=== PATIENT | female | born 1990 | race Caucasian/White ===

== ENCOUNTER 2016-05-28 14:49 | Emergency (ER) | payer OTHER ==
[2016-05-28 17:18] VITALS: BP 129/95
[2016-05-28] MEDS ORDERED: Sulfamethox/Trimethoprim DS 800/160* TAB PO ONE (18:06)
[2016-05-28] MEDS ORDERED: Cephalexin CAP* 500 MG PO ONE (18:06)
--- NOTE | 2016-06-07 13:52 | UC ---
Carlos Martínez Erika, scribed for Kae Hi DO on 05/28/16 at 1756 . Skin Complaint HPI - HPI Summary HPI Summary: Patient is a 25-year-old female presenting to [facility] with a CC of possible abscess. Patient reports she noticed the abscess in her left axilla one week ago , and it has been worsening since. She reports it is painful at the site, and a burning pain radiates down the arm to the forearm. Pain is aggravated by moving the arm. Pain is temporarily alleviated by hot compresses which she has used 5x/ day for the past week. Patient states mild drainage from the area a few days ago. Associated symptoms include fatigue, chills for the past 2 days, and headache for the past 3 days. Patient also notes a left-sided ear ache for the past week. Patient denies abscesses in the past. Hx migraines, asthma, non- alcoholic cirrhosis. PSHx cholecystectomy, 2 C-sections, ear tubes. FHx CAD, HTN. Patient smokes, and works in retail. - History of Current Complaint Chief Complaint: UCWounds Time Seen by Provider: 05/28/16 17:29 Stated Complaint: WOUND IN ARMPIT Hx Obtained From: Patient Hx Last Menstrual Period: 05/10/16 Onset/Duration: Gradual Onset, Lasting Weeks - about 1 week, Still Present Timing: Constant Onset Severity: Mild Current Severity: Moderate Pain Intensity: 8 Pain Scale Used: 0-10 Numeric Location: Other - right axilla Character: Pain, Redness, Raised Aggravating: Touch Alleviating: Heat - temporarily Associated Signs & Symptoms: Positive: Chills - Allergy/Home Medications Allergies/Adverse Reactions: Allergies Allergy/AdvReac Type Severity Reaction Status Date / Time Acetaminophen [From Tylenol] Allergy See Comment Verified 05/30/16 09:45 Review of Systems Constitutional: Chills, Fatigue Skin: Other - possible abscess in the left axilla Eyes: Negative ENT: Ear Ache - left Respiratory: Negative Cardiovascular: Negative Gastrointestinal: Negative Genitourinary: Negative Motor: Negative Neurovascular: Negative Musculoskeletal: Negative Neurological: Headache Psychological: Negative All Other Systems Reviewed And Are Negative: Yes PMH/Surg Hx/FS Hx/Imm Hx - Additional Past Medical History Additional PMH: non-alcoholic cirrhosis Endocrine History Of: Denies: Diabetes, Thyroid Disease Cardiovascular History Of: Denies: Cardiac Disorders, Hypertension, Congestive Heart Failure Respiratory History Of: Reports: Asthma Denies: COPD GI/ History Of: Denies: Ulcer Neurological History Of: Reports: Migraine - Surgical History Surgical History: Yes Surgery Procedure, Year, and Place: gallbladder, 2 csection, ear tubes - Family History Known Family History: Positive: Cardiac Disease, Hypertension - Social History Occupation: Employed Full-time Lives: With Family Alcohol Use: Occasionally Substance Use Type: None Smoking Status (MU): Light Every Day Tobacco Smoker Type: Cigarettes Have You Smoked in the Last Year: Yes Household Exposure Type: Cigarettes Cessation Counseling: Patient Advised to Stop Physical Exam Triage Information Reviewed: Yes Appearance: Well-Appearing, No Pain Distress, Obese Vital Signs: Initial Vital Signs Temp 99.8 F 05/28/16 17:12 Pulse 108 05/28/16 17:12 Resp 20 05/28/16 17:12 BP 129/95 05/28/16 17:12 Pulse Ox 94 05/28/16 17:12 Vital Signs Reviewed: Yes Eyes: Positive: Conjunctiva Clear. Negative: Discharge ENT: Positive: Hearing grossly normal, TMs normal. Negative: Muffled/hoarse voice Neck: Positive: Supple, Nontender Respiratory: Positive: Lungs clear, Normal breath sounds, No respiratory distress, No accessory muscle use Cardiovascular: Positive: No Murmur, Tachycardia - at 108 bpm on triage, 98 bpm on exam Musculoskeletal Exam: Normal Neurological: Positive: Alert, Muscle Tone Normal Psychological Exam: Normal Psychological: Positive: Age Appropriate Behavior Skin Exam: Other - quarter sized area of erythema in left axilla. There is an indurated area underneath it approximately 4 cm x 2 cm, exquisitely tender. Positive for callor, negative for fluctuance, negative for drainage. Course/Dx - Diagnoses Provider Diagnoses: abscess Discharge - Discharge Plan Condition: Stable Disposition: HOME Prescriptions: Cephalexin CAP* [Keflex CAP*] 500 mg PO BID #19 cap HYDROcodone/ACETAMIN 5-325 MG* [[place] 5-325 TAB*] 1 tab PO Q8H PRN #8 tab MDD 3 TABS PRN Reason: Pain Sulfamethox/Trimethoprim DS* [Bactrim DS 800/160 TAB*] 1 tab PO BID #19 tab Patient Education Materials: Abscess (ED), Serous Otitis Media (ED) Forms: *Work Release Referrals: No Primary Care Phys,NOPCP [Primary Care Provider] - Additional Instructions: DISCUSSED, YOUR ABSCESS IS STILL VERY HARD. WE COULD TRY DRAINING IT TODAY BUT THE PROCEDURE MAY NOT BE VERY FRUITFUL. YOU HAVE CHOSEN TO TRY STARTING ANTIBIOTICS, CONTINUING WARM SOAKS AND FOLLOWING UP IN 2 DAYS FOR RE-EVALUATION. IF SYMPTOMS WORSEN OR NEW SYMPTOMS DEVELOP, YOU SHOULD RETURN HERE OF GO TO THE ED SOONER FOR RE-EVALUATION. CEPHALEXIN: The antibiotic you've been prescribed is a member of the cephalosporin class. This type of antibiotic covers a wide variety of infections, including those of the skin, lungs, and urinary tract. It's useful for staph infections. This antibiotic is slightly similar to the penicillin family. In rare cases , a person who is allergic to penicillin will also be allergic to this medication. If you have had a severe allergic reaction to penicillin, and have not taken this antibiotic since that time, notify your doctor. Antibiotics which cover many germs ("broad spectrum" antibiotics) are more likely to cause diarrhea or "yeast" infections. Women prone to vaginal yeast problems may suffer an attack after taking this antibiotic. In infants, oral thrush (white spots "stuck" on the cheek) or yeast diaper rash may result. See your doctor if these problems occur. Call at once if you develop itching, hives , shortness of breath, or lightheadedness. ANTIBIOTIC THERAPY:BACTRIM You have been given an antibiotic prescription. It's important that you take all the medication, unless instructed otherwise by your physician. Failure to complete the entire course can result in relapse of your condition. Common side effects of antibiotics include nausea, intestinal cramping, or diarrhea. Women may develop vaginal yeast infections, and babies can get yeast (thrush) in the mouth following the use of antibiotics. Contact your physician if you develop significant side effects from this medication. Allergy to this antibiotic can result in hives, wheezing, faintness, or itching. If symptoms of allergy occur, stop the medication and call the doctor. ANY TIME YOU TAKE AN ANTIBIOTIC, IT IS IMPORTANT TO REPLENISH THE BODY'S BALANCE OF "GOOD" BACTERIA BY EATING HIGH QUALITY CULTURED FOOD SUCH YOGURT, SAURKRAUT OR CARLA CHI AND/OR TAKING A PROBIOTIC SUPPLEMENT. The documentation as recorded by the Carlos christina Erika accurately reflects the service I personally performed and the decisions made by , Kae Hi DO.
== END 2016-05-28 18:36 | disposition home or self-care (01) ==
LOC: UCEAST 14:49
DX: L02.412 Cutaneous abscess of left axilla (principal); R53.83 Other fatigue; R68.83 Chills (without fever); J45.909 Unspecified asthma, uncomplicated; G43.909 Migraine, unspecified, not intractable, without status migrainosus; E66.9 Obesity, unspecified; Z90.49 Acquired absence of other specified parts of digestive tract; Z88.6 Allergy status to analgesic agent; F17.210 Nicotine dependence, cigarettes, uncomplicated
CPT/HCPCS: 99212; A9270-GY; G0463

== ENCOUNTER 2016-05-30 09:34 | Emergency (ER) | payer OTHER ==
[2016-05-30 09:50] VITALS: BP 134/72
[2016-05-30] MEDS ORDERED: Lidocaine/Epineph/Tetraca SOL* (LET solution) 4 ML BTL TOPICAL ONE (09:58)
--- NOTE | 2016-05-30 09:58 | UC ---
Skin Complaint HPI - HPI Summary HPI Summary: worsening abscess under left arm---seen 2 days ago and was began on Keflex and Bactrim - History of Current Complaint Chief Complaint: UCGeneralIllness Time Seen by Provider: 05/30/16 09:44 Stated Complaint: RECHECK ABCESS Hx Obtained From: Patient Hx Last Menstrual Period: April 2015 ?: No Onset/Duration: Sudden Onset, Lasting Days, Worse Since - past 24 hours Timing: Constant Onset Severity: Moderate Current Severity: Moderate Pain Intensity: 9 Pain Scale Used: 0-10 Numeric Location: Discrete - left axilla Character: Pain, Redness, Raised Aggravating: Touch Alleviating: Treatment SPORTS SPECIALIST: - hydrocodone, bactrim , keflex Associated Signs & Symptoms: Positive: Tenderness - left axilla - Allergy/Home Medications Allergies/Adverse Reactions: Allergies Allergy/AdvReac Type Severity Reaction Status Date / Time Acetaminophen [From Tylenol] Allergy See Comment Verified 05/30/16 09:45 Review of Systems Constitutional: Negative Skin: Negative, Other - abscess left axilla Eyes: Negative ENT: Negative Respiratory: Negative Cardiovascular: Negative Gastrointestinal: Negative Genitourinary: Negative Motor: Negative Neurovascular: Negative Musculoskeletal: Negative Neurological: Negative Psychological: Negative All Other Systems Reviewed And Are Negative: Yes PMH/Surg Hx/FS Hx/Imm Hx Previously Healthy: No Endocrine History Of: Denies: Diabetes, Thyroid Disease Cardiovascular History Of: Denies: Cardiac Disorders, Hypertension, Congestive Heart Failure Respiratory History Of: Reports: Asthma Denies: COPD GI/ History Of: Denies: Ulcer - Surgical History Surgical History: Yes Surgery Procedure, Year, and Place: gallbladder, 2 csection - Family History Known Family History: Positive: None Family History: no reported cardiovascular issues in family lineage - Social History Occupation: Employed Full-time Lives: With Family Alcohol Use: Occasionally Substance Use Type: None Smoking Status (MU): Light Every Day Tobacco Smoker Amount Used/How Often: 1/2 ppd Household Exposure Type: Cigarettes Cessation Counseling: Patient Advised to Stop - Immunization History Most Recent Influenza Vaccination: 2016 Most Recent Tetanus Shot: UTD Most Recent Pneumonia Vaccination: n/a Physical Exam Triage Information Reviewed: Yes Appearance: Well-Appearing, Pain Distress, Obese Vital Signs: Initial Vital Signs Temp 98.2 F 05/30/16 09:46 Pulse 90 05/30/16 09:46 Resp 18 05/30/16 09:46 BP 134/72 05/30/16 09:46 Pulse Ox 99 05/30/16 09:46 Vital Signs Reviewed: Yes Eye Exam: Normal Eyes: Positive: Conjunctiva Clear ENT Exam: Normal ENT: Positive: Normal ENT inspection, Hearing grossly normal. Negative: Nasal congestion, Nasal drainage, Trismus, Muffled/hoarse voice Dental Exam: Normal Neck exam: Normal Neck: Positive: Supple, Nontender, No Lymphadenopathy Respiratory Exam: Normal Respiratory: Positive: Chest non-tender, Lungs clear, Normal breath sounds, No respiratory distress, No accessory muscle use Cardiovascular Exam: Normal Cardiovascular: Positive: RRR, No Murmur, Pulses Normal, Brisk Capillary Refill Musculoskeletal Exam: Normal Musculoskeletal: Positive: Strength Intact, ROM Intact, No Edema Neurological Exam: Normal Neurological: Positive: Alert, Muscle Tone Normal Psychological Exam: Normal Psychological: Positive: Normal Response To Family Skin Exam: Normal, Other - abscess left axilla Skin: Positive: Other - 6x6 cm firm mass with central softening Re-Evaluation - Re-Evaluation First Eval Change: Improved - tolerated I&D well, 30-40 cc of purulent drainage from wound , 1/4 inch paching and bulky dressing applied Course/Dx - Course Course Of Treatment: continue keflex and Bactrim, pain med, sling heat, dressing change BID and prn, return in 2 days for packing removal and re-check, follow with pcp, nicotine cesation support - Differential Diagnoses - Skin Complaint Differential Diagnoses: Abscess, MRSA - Diagnoses Provider Diagnoses: I&D left axilla abscess, nicotine dependent Procedures - Incision and Drainage Site: left axilla Anesthesia: Topical - Let 4cc, Local - 4 cc of lidocaine 1% with out epi Instrument(s): Scalpel Packing: Gauze Discharge - Discharge Plan Condition: Stable Disposition: HOME Patient Education Materials: Abscess (ED), Heat Pack Application (ED) Forms: *Work Release Referrals: [facility] [Outside] - 5 Days Additional Instructions: return in 2 days for packing removal
[2016-05-30] MEDS ORDERED: HYDROcodone/ACETAMIN 5-325 MG* 1 TAB PO ONE (09:59)
[2016-05-30] MEDS ORDERED: Lidocaine 1% MDV 20 ML INJ ONE (09:59)
[2016-05-30] MEDS ORDERED: Lidocaine 1% MPF* 2 ML VIAL ONE (10:09)
== END 2016-05-30 11:26 | disposition home or self-care (01) ==
LOC: UCEAST 09:34
DX: L02.412 Cutaneous abscess of left axilla (principal); J45.909 Unspecified asthma, uncomplicated; F17.210 Nicotine dependence, cigarettes, uncomplicated; Z88.6 Allergy status to analgesic agent
CPT/HCPCS: 10060; 87070; 87077; 87186; 87205; 87640; 87641; 99212; G0463

== ENCOUNTER 2016-09-15 12:53 | Emergency (ER) | payer OTHER ==
[2016-09-15 12:57] VITALS: BP 117/82
[2016-09-15] MEDS ORDERED: Ibuprofen TAB* 600 MG PO ONE (14:20)
--- NOTE | 2016-09-15 15:11 | ED ---
Throat Pain/Nasal Congestion - HPI Summary HPI Summary: 26 female presents with complaints of redness, swelling and pain of right lower eye lid that has been ongoing for the past 2 days and worsening. Patient states she thought it was a stye however has been doing warm compresses without relief. States vision is blurred due to swelling however no vision loss. No symptoms of left eye. Denies pruritis adn fever/chills. Denies any discharge. States swelling has started to go into cheek area below eye. Denies anything like this before. No other symptoms or complaints. PMHx nonalcoholic cirrhosis of liver. - History of Current Complaint Chief Complaint: EDEyeProblem Time Seen by Provider: 09/15/16 13:14 Hx Obtained From: Patient Onset/Duration: Sudden Onset, Lasting Days Severity: Mild - Allergies/Home Medications Allergies/Adverse Reactions: Allergies Allergy/AdvReac Type Severity Reaction Status Date / Time Acetaminophen [From Tylenol] Allergy See Comment Verified 05/30/16 09:45 PMH/Surg Hx/FS Hx/Imm Hx Endocrine/Hematology History: Denies: Hx Diabetes, Hx Thyroid Disease Cardiovascular History: Denies: Hx Congestive Heart Failure, Hx Hypertension Respiratory History: Reports: Hx Asthma Denies: Hx Chronic Obstructive Pulmonary Disease (COPD) GI History: 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 , Other GI Disorders - abd pain x 2 mo Denies: Hx Ulcer - Surgical History Surgery Procedure, Year, and Place: gallbladder, 2 csection Infectious Disease History: No Infectious Disease History: Denies: Hx Hepatitis, Hx Human Immunodeficiency Virus (HIV), Traveled Outside the [place] in Last 30 Days - Family History Known Family History: Positive: None Family History: no reported cardiovascular issues in family lineage - Social History Alcohol Use: Occasionally Substance Use Type: Reports: None Smoking Status (MU): Light Every Day Tobacco Smoker Amount Used/How Often: 1/2 ppd Review of Systems Constitutional: Negative Positive: Blurred Vision, Drainage - minimal intermittently, Erythema, Other - swelling, pain ENT: Negative Cardiovascular: Negative Respiratory: Negative Gastrointestinal: Negative All Other Systems Reviewed And Are Negative: Yes Physical Exam Triage Information Reviewed: Yes Vital Signs On Initial Exam: Initial Vitals Temp Pulse Resp BP Pulse Ox 97.5 F 86 20 117/82 98 09/15/16 12:55 09/15/16 12:55 09/15/16 12:55 09/15/16 12:55 09/15/16 12:55 Vital Signs Reviewed: Yes Appearance: Positive: Well-Appearing, No Pain Distress, Well-Nourished Skin: Positive: Warm, Skin Color Reflects Adequate Perfusion, Dry, Erythema @ - periorbital area under right eyelid with some edema. warm to touch, rest of skin exam normal. Head/Face: Positive: Normal Head/Face Inspection - besides eye as noted below Eyes: Positive: EOMI, SANTIAGO, Conjunctiva Clear, Other: - appears to be an infected stye or tear duct that was clogged and became infected, red, swollen RIGHT lower inner lid also warm. no current drainage noted. yellow crusted appearance in areas of lower eye lid at swollen area. very firm to touch. stye not palpated or visualized due to diffuse swelling. normal fundoscopic exam from what could be visualized. visual acuity limited due to blurriness of right eye ENT: Positive: Normal ENT inspection, Hearing grossly normal, Pharynx normal, TMs normal Neck: Positive: Supple, Nontender Respiratory/Lung Sounds: Positive: Clear to Auscultation, Breath Sounds Present. Negative: Rales, Rhonchi, Wheezes Cardiovascular: Positive: Normal, RRR, Pulses are Symmetrical in both Upper and Lower Extremities. Negative: Murmur, Rub Bowel Sounds: Positive: Present Musculoskeletal: Positive: Normal, Strength/ROM Intact Neurological: Positive: Normal, Sensory/Motor Intact, Alert, Oriented to Person Place, Time Psychiatric: Positive: Affect/Mood Appropriate - [place] Coma Scale Coma Scale Total: 15 Diagnostics - Vital Signs Vital Signs Temp Pulse Resp BP Pulse Ox 09/15/16 13:33 97.5 F 86 20 117/82 98 09/15/16 12:55 97.5 F 86 20 117/82 98 - Laboratory Lab Statement: Any lab studies that have been ordered have been reviewed, and results considered in the medical decision making process. EENT Course/Dx - Course Course Of Treatment: given ibuprofen for pain and inflammation. Due to PE findings spoke with Dr Jackson to confirm both topical and oral antibiotic usage. Dr Jackson agreed with treatment plan. Given erythromycin topical and oral augmentin to use at home and follow up with optho. Aware of worsening signs and symptoms to follow up sooner for. Continue warm compresses and ibuprofen. - Differential Diagnoses Differential Diagnoses: Cellulitis, Dental Abscess, Periorbital/Orbital Cellulitis, Uveitis - Diagnoses Provider Diagnoses: Periorbital cellulitis of right eye, Plugged tear duct, Stye - Provider Notifications Discussed Care Of Patient With: Dr Jackson Time Discussed With Above Provider: 15:05 Discharge - Discharge Plan Condition: Stable Disposition: HOME Prescriptions: Amoxicillin/Clavulanate TAB* [Augmentin TAB 875*] 875 mg PO BID #14 tab Erythromycin TOPICAL GEL* [Erythromycin OPTH OINT*] 1 applic TOPICAL TID #1 oint Patient Education Materials: Stye (ED), Blocked Tear Duct (ED), Orbital Cellulitis (ED) Forms: *Work Release Referrals: [facility] [place] [facility] [Outside] No Primary Care Phys,NOPCP [Primary Care Provider] - Mehdi Bingham MD [Medical Doctor] - Additional Instructions: Take prescribed antibiotic as directed. Apply ointment three times daily. Continue warm compresses as often as possible. Massage area to help drain. Do not wear make up or touch eye. Ibuprofen for pain and inflammation. Follow up and make an appointment with Dr Bingham opthamology office in 3-5 days. Follow up with primary care provider. If symptoms worsen or do not improve please seek medical attention promptly.
== END 2016-09-15 15:22 | disposition home or self-care (01) ==
LOC: ED 12:53
DX: L03.213 Periorbital cellulitis (principal); H04.551 Acquired stenosis of right nasolacrimal duct; H00.012 Hordeolum externum right lower eyelid; F17.210 Nicotine dependence, cigarettes, uncomplicated; J45.909 Unspecified asthma, uncomplicated
CPT/HCPCS: 99282; A9270-GY

== ENCOUNTER 2016-09-27 06:42 | Emergency (ER) | payer MEDICAID, OTHER ==
[2016-09-27] MEDS ORDERED: diPHENhydraMINE IV* 50 MG/ML 1 ml VIAL (BENADRYL) IV ONE (07:16)
[2016-09-27] MEDS ORDERED: NS 0.9% 1000 ML* 1,000 ML IV ONE (07:16)
[2016-09-27] MEDS ORDERED: Metoclopramide IV* 5 MG/ML 2 ML VIAL IV ONE (07:16)
[2016-09-27] MEDS ORDERED: Ketorolac INJ* 30 MG/ML 1 ML VIAL IV PUSH ONE (07:17)
[2016-09-27 08:03] LABS: Hematocrit 41 % (35-47); Mean Corpuscular HGB Conc 34 g/dl (31-36); Mean Corpuscular Hemoglobin 30 pg (27-31); Mean Corpuscular Volume 89 fL (80-97); Mean Platelet Volume 9 um3 (7.4-10.4); Red Blood Count 4.63 10^6/ul (4.0-5.4); Red Cell Distribution Width 13 % (10.5-15); White Blood Count 6.4 10^3/ul (3.5-10.8)
[2016-09-27 08:14] LABS: Albumin 3.8 g/dL (3.2-5.2); BUN/Creatinine Ratio 16.1 (8-20); EGFR African American 147.4 (>60); EGFR Non-African American 114.6 (>60); Globulin 2.8 g/dL (2-4); Potassium 3.7 mmol/L (3.5-5.0); Total Bilirubin 0.5 mg/dL (0.2-1.0); Total Protein 6.6 g/dL (6.4-8.9)
[2016-09-27 08:32] LABS: Urine Bacteria 1+ (Absent); Urine Bilirubin Negative (Negative); Urine Glucose Negative (Negative); Urine Nitrite Negative (Negative)
[2016-09-27 10:09] VITALS: BP 112/91
[2016-09-27 10:12] LABS: Erythrocyte Sed Rate 9 mm/Hr (0-14)
--- NOTE | 2016-09-27 17:49 | ED ---
Yehuda Martínez Rebecca, scribed for Zaid Alaniz MD on 09/27/16 at 0718 . Headache - HPI Summary HPI Summary: Pt is a 26 y/o F who presents to ED c/o DESOUZA. Sx began yesterday at 2300 and is currently severe, ranked 10/10. DESOUZA is in the occipital, frontal and L-sided temporal regions of the head with radiation to the neck and characterized as a typical migraine. Sx aggravated and alleviated by nothing. Additionally c/o N/V and chills. Denies fever. PMHx migraines - current sx are similar to previous episodes of migraines. Usually, she gets migraines once every few weeks and treats them with Ibuprofen and a muscle relaxant of which she is unsure of the name. - History Of Current Complaint Chief Complaint: EDHeadache Stated Complaint: MIGRAINE/NAUSEA Time Seen by Provider: 09/27/16 07:07 Hx Obtained From: Patient Hx Last Menstrual Period: April 2015 Onset/Duration: Started hours ago - At 2300 last night, Still Present Currently Pain Is: Current Pain Scale(0-10)= - 10/10, Severe Character: Migraine Location of Headache: Frontal, Temporal - Left-sided, Occipital Radiates to: Neck Aggravating Factor: Nothing Allevating Factors: Nothing Associated Signs And Symptoms: Nausea, Vomiting, Other (Noted In Comments) - Chills Related History: Similar Episode/DX As: - Previous migraines - Allergies/Home Medications Allergies/Adverse Reactions: Allergies Allergy/AdvReac Type Severity Reaction Status Date / Time Acetaminophen [From Tylenol] Allergy See Comment Verified 09/27/16 06:47 PMH/Surg Hx/FS Hx/Imm Hx Endocrine/Hematology History: Denies: Hx Diabetes, Hx Thyroid Disease Cardiovascular History: Denies: Hx Congestive Heart Failure, Hx Hypertension Respiratory History: Reports: Hx Asthma Denies: Hx Chronic Obstructive Pulmonary Disease (COPD) GI History: 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 , Other GI Disorders - abd pain x 2 mo Denies: Hx Ulcer - Surgical History Surgery Procedure, Year, and Place: gallbladder, 2 csection Infectious Disease History: Yes Infectious Disease History: Denies: Hx Hepatitis, Hx Human Immunodeficiency Virus (HIV), Traveled Outside the [place] in Last 30 Days - Family History Known Family History: Negative: Cardiac Disease Family History: no reported cardiovascular issues in family lineage - Social History Alcohol Use: Occasionally Substance Use Type: Reports: None Smoking Status (MU): Light Every Day Tobacco Smoker Amount Used/How Often: 1/2 ppd Review of Systems Positive: Chills. Negative: Fever Positive: Vomiting, Nausea Positive: Headache - 10/10 typical migraine All Other Systems Reviewed And Are Negative: Yes Physical Exam - Summary Physical Exam Summary: VITAL SIGNS: Reviewed. GENERAL: ~Patient is an obese female who is lying comfortable in the stretcher. ~Patient is not in any acute respiratory distress. HEAD AND FACE: No signs of trauma. ~No ecchymosis, hematomas or skull depressions. No sinus tenderness. EYES: PERRLA, EOMI x 2, No injected conjunctiva, no nystagmus. EARS: Hearing grossly intact. Ear canals and tympanic membranes are within normal limits. MOUTH: Oropharynx within normal limits. NECK: Supple, trachea is midline, no adenopathy, no JVD, no carotid bruit, no c- spine tenderness, neck with full ROM. CHEST: Symmetric, no tenderness at palpation LUNGS: Clear to auscultation bilaterally. No wheezing or crackles. CVS: Regular rate and rhythm, S1 and S2 present, no murmurs or gallops appreciated. ABDOMEN: Soft, non-tender. No signs of distention. No rebound no guarding, and no masses palpated. Bowel sounds are normal. EXTREMITIES: FROM in all major joints, no edema, no cyanosis or clubbing. NEURO: Alert and oriented x 3. No acute neurological deficits. Speech is normal and follows commands. SKIN: Dry and warm Triage Information Reviewed: Yes Vital Signs On Initial Exam: Initial Vitals Temp Pulse Resp BP Pulse Ox 98.1 F 85 16 117/80 97 09/27/16 06:48 09/27/16 06:48 09/27/16 06:48 09/27/16 06:48 09/27/16 06:48 Vital Signs Reviewed: Yes - [place] Coma Scale Coma Scale Total: 15 Diagnostics - Vital Signs Vital Signs Temp Pulse Resp BP Pulse Ox 09/27/16 06:48 98.1 F 85 16 117/80 97 - Laboratory Lab Results: Lab Results 09/27/16 09/27/16 09/27/16 Range/Units 07:50 07:50 08:00 WBC 6.4 (3.5-10.8) 10^3/ul RBC 4.63 (4.0-5.4) 10^6/ul Hgb 14.0 (12.0-16.0) g/dl Hct 41 (35-47) % MCV 89 (80-97) fL MCH 30 (27-31) pg MCHC 34 (31-36) g/dl RDW 13 (10.5-15) % Plt Count 212 (150-450) 10^3/ul MPV 9 (7.4-10.4) um3 Neut % (Auto) 58.6 (38-83) % Lymph % (Auto) 31.7 (25-47) % [place] % (Auto) 7.1 (1-9) % Eos % (Auto) 2.0 (0-6) % Baso % (Auto) 0.6 (0-2) % Absolute Neuts (auto) 3.8 (1.5-7.7) 10^3/ul Absolute Lymphs (auto) 2.0 (1.0-4.8) 10^3/ul Absolute Monos (auto) 0.5 (0-0.8) 10^3/ul Absolute Eos (auto) 0.1 (0-0.6) 10^3/ul Absolute Basos (auto) 0 (0-0.2) 10^3/ul Absolute Nucleated RBC 0 10^3/ul Nucleated RBC % 0 ESR 9 (0-14) mm/Hr Carbon Monoxide Screen (<3.5) % Sodium 136 (133-145) mmol/L Potassium 3.7 (3.5-5.0) mmol/L Chloride 104 (101-111) mmol/L Carbon Dioxide 27 (22-32) mmol/L Anion Gap 5 (2-11) mmol/L BUN 10 (6-24) mg/dL Creatinine 0.62 (0.51-0.95) mg/dL Est GFR ( Amer) 147.4 (>60) Est GFR (Non-Af Amer) 114.6 (>60) BUN/Creatinine Ratio 16.1 (8-20) Glucose 101 H (70-100) mg/dL Calcium 9.0 (8.6-10.3) mg/dL Total Bilirubin 0.50 (0.2-1.0) mg/dL AST 18 (13-39) U/L ALT 36 (7-52) U/L Alkaline Phosphatase 83 (34-104) U/L Total Protein 6.6 (6.4-8.9) g/dL Albumin 3.8 (3.2-5.2) g/dL Globulin 2.8 (2-4) g/dL Albumin/Globulin Ratio 1.4 (1-3) Urine Color Red A Urine Appearance Cloudy Urine pH 7.0 (5-9) Ur Specific [place] 1.016 (1.010-1.030) Urine Protein 1+(30 mg/dl) H (Negative) Urine Ketones Negative (Negative) Urine Blood 3+ H (Negative) Urine Nitrate Negative (Negative) Urine Bilirubin Negative (Negative) Urine Urobilinogen Negative (Negative) Ur Leukocyte Esterase Negative (Negative) Urine WBC (Auto) 1+(6-10/hpf) H (Absent) Urine RBC (Auto) 3+(>10/hpf) H (Absent) Ur Squamous Epith Cells Present H (Absent) Urine Bacteria 1+ H (Absent) Urine Glucose Negative (Negative) 09/27/16 Range/Units 08:00 WBC (3.5-10.8) 10^3/ul RBC (4.0-5.4) 10^6/ul Hgb (12.0-16.0) g/dl Hct (35-47) % MCV (80-97) fL MCH (27-31) pg MCHC (31-36) g/dl RDW (10.5-15) % Plt Count (150-450) 10^3/ul MPV (7.4-10.4) um3 Neut % (Auto) (38-83) % Lymph % (Auto) (25-47) % [place] % (Auto) (1-9) % Eos % (Auto) (0-6) % Baso % (Auto) (0-2) % Absolute Neuts (auto) (1.5-7.7) 10^3/ul Absolute Lymphs (auto) (1.0-4.8) 10^3/ul Absolute Monos (auto) (0-0.8) 10^3/ul Absolute Eos (auto) (0-0.6) 10^3/ul Absolute Basos (auto) (0-0.2) 10^3/ul Absolute Nucleated RBC 10^3/ul Nucleated RBC % ESR (0-14) mm/Hr Carbon Monoxide Screen 5.2 H (<3.5) % Sodium (133-145) mmol/L Potassium (3.5-5.0) mmol/L Chloride (101-111) mmol/L Carbon Dioxide (22-32) mmol/L Anion Gap (2-11) mmol/L BUN (6-24) mg/dL Creatinine (0.51-0.95) mg/dL Est GFR ( Amer) (>60) Est GFR (Non-Af Amer) (>60) BUN/Creatinine Ratio (8-20) Glucose (70-100) mg/dL Calcium (8.6-10.3) mg/dL Total Bilirubin (0.2-1.0) mg/dL AST (13-39) U/L ALT (7-52) U/L Alkaline Phosphatase (34-104) U/L Total Protein (6.4-8.9) g/dL Albumin (3.2-5.2) g/dL Globulin (2-4) g/dL Albumin/Globulin Ratio (1-3) Urine Color Urine Appearance Urine pH (5-9) Ur Specific [place] (1.010-1.030) Urine Protein (Negative) Urine Ketones (Negative) Urine Blood (Negative) Urine Nitrate (Negative) Urine Bilirubin (Negative) Urine Urobilinogen (Negative) Ur Leukocyte Esterase (Negative) Urine WBC (Auto) (Absent) Urine RBC (Auto) (Absent) Ur Squamous Epith Cells (Absent) Urine Bacteria (Absent) Urine Glucose (Negative) Result Diagrams: 09/27/16 07:50 09/27/16 07:50 Lab Statement: Any lab studies that have been ordered have been reviewed, and results considered in the medical decision making process. Re-Evaluation - Re-Evaluation First Eval Re-Evaluation Time: 09:54 Change: Improved Comment: Pt's sx have improved and she is asymptomatic. Headache Course/Dx - Course Assessment/Plan: Pt is a 26 y/o F who presents to ED c/o DESOUZA. Sx began yesterday at 2300 and is currently severe, ranked 10/10. DESOUZA is in the occipital, frontal and L-sided temporal regions of the head with radiation to the neck and characterized as a typical migraine. Sx aggravated and alleviated by nothing. Additionally c/o N/V and chills. Denies fever. PMHx migraines - current sx are similar to previous episodes of migraines. Usually, she gets migraines once every few weeks and treats them with Ibuprofen and a muscle relaxant of which she is unsure of the name. Test results without any significant abnormality except for carbon monoxide of 5.2 and glucose of 101. UA is contaminated, therefore it was sent for urine cultures. In the ED course, the pt was given IV fluids, Toradol, Reglan and Benadryl for the DESOUZA and the sx have resolved. At this time, the pt is asymptomatic. She is A&Ox3 therefore the pt will be D/C to home with a follow-up with PCP. Pt is hemodynamically stable and A&Ox3. I discussed all the findings and test results with the patient. Patient was instructed to return to the emergency room immediately if any of the symptoms return or worsens. Patient understands and agrees. Plan of care was discussed with the patient and patient understands and agrees with the plan of care. All questions were answered at patient satisfaction. There were no further complaints or concerns. Patient is alert and oriented x 3. Patient vital signs are stable. Patient is to follow up with primary care physician in the next 2 to 3 days. Patient understands and agrees. - Diagnoses Differential Diagnosis/HQI/PQRI: Migraine, Sinus Headache, Tension Headache Provider Diagnoses: Migraine headache Discharge - Discharge Plan Condition: Stable Disposition: HOME Patient Education Materials: Migraine Headache (ED) Referrals: [facility] PHYSICIAN REFERRAL [Outside] - 3 Days The documentation as recorded by the Yehuda christina Rebecca accurately reflects the service I personally performed and the decisions made by me, Zaid Alaniz MD.
--- NOTE | 2016-09-30 09:06 | PN ---
Progress Note - Progress Note Date of Service: 09/30/16 Note: Patient urine culture grew E coli 10-25,000 and normal suyapa so likely contaminate. no symptoms so no further action needed.
== END 2016-09-27 10:09 | disposition home or self-care (01) ==
LOC: ED 06:42
DX: G43.909 Migraine, unspecified, not intractable, without status migrainosus (principal); R11.2 Nausea with vomiting, unspecified; F17.210 Nicotine dependence, cigarettes, uncomplicated
CPT/HCPCS: 36415; 80053; 81003; 81015; 82375; 85025; 85652; 87077; 87086; 87186; 96374; 96375; 99282; J1200; J1885; J2765

== ENCOUNTER 2016-10-08 10:37 | Emergency (ER) | payer MEDICAID ==
[2016-10-08 12:50] VITALS: BP 110/79
--- NOTE | 2016-10-08 13:22 | UC ---
Skin Complaint HPI - HPI Summary HPI Summary: RED TENDER SMALL NODULE UNDER RIGHT ARMPIT. HISTORY OF AXILLARY ABSCESSES AND MRSA. NO FEVER. NO CHANGE IN ROM. - History of Current Complaint Chief Complaint: UCSkin Time Seen by Provider: 10/08/16 12:00 Stated Complaint: ABCESS ARM Hx Obtained From: Patient, Family/Diagram Clerk Hx Last Menstrual Period: 09/29/16 Onset/Duration: Gradual Onset, Lasting Days Skin Exposure Onset/Duration: Days Ago Onset Severity: Mild Current Severity: Mild Pain Intensity: 0 Pain Scale Used: 0-10 Numeric Location: Discrete - RIGHT AXILLA Character: Redness, Raised, Painful Aggravating: Touch Alleviating: Nothing Associated Signs & Symptoms: Positive: Rash - RIGHT AXILLA, Tenderness. Negative: Thirst, Fever, Chills, Cough, Syncope, Drainage, Bruising, Red Streaks , Joint Swelling - Allergy/Home Medications Allergies/Adverse Reactions: Allergies Allergy/AdvReac Type Severity Reaction Status Date / Time Acetaminophen [From Tylenol] Allergy See Comment Verified 10/08/16 10:47 Home Medications: Home Medications Albuterol HFA INHALER* [Ventolin HFA Inhaler*] 1 - 2 puff INH Q6H PRN 10/08/16 [ History Confirmed 10/08/16] Review of Systems Constitutional: Negative Skin: Other - SMALL ABSCESS RIGHT AXILLA Eyes: Negative ENT: Negative Respiratory: Negative Cardiovascular: Negative Gastrointestinal: Negative Genitourinary: Negative Motor: Negative Neurovascular: Negative Musculoskeletal: Negative Neurological: Negative Psychological: Negative All Other Systems Reviewed And Are Negative: Yes PMH/Surg Hx/FS Hx/Imm Hx Previously Healthy: Yes - Surgical History Surgical History: Yes Surgery Procedure, Year, and Place: gallbladder, 2 csection - Family History Known Family History: Positive: None Negative: Cardiac Disease Family History: no reported cardiovascular issues in family lineage - Social History Alcohol Use: Occasionally Substance Use Type: None Smoking Status (MU): Light Every Day Tobacco Smoker Amount Used/How Often: 1/2 ppd Household Exposure Type: Cigarettes - Immunization History Most Recent Influenza Vaccination: 2016 Most Recent Tetanus Shot: UTD Most Recent Pneumonia Vaccination: n/a Physical Exam Triage Information Reviewed: Yes Appearance: Well-Appearing, No Pain Distress, Well-Nourished Vital Signs: Initial Vital Signs Temp 98 F 10/08/16 10:48 Pulse 86 10/08/16 10:48 Resp 18 10/08/16 10:48 BP 119/81 10/08/16 10:48 Pulse Ox 99 10/08/16 10:48 Vital Signs Reviewed: Yes Eye Exam: Normal ENT Exam: Normal ENT: Positive: Normal ENT inspection Dental Exam: Normal Neck exam: Normal Neck: Positive: Supple, Nontender, No Lymphadenopathy Respiratory Exam: Normal Respiratory: Positive: Chest non-tender, Lungs clear, Normal breath sounds, No respiratory distress, No accessory muscle use Cardiovascular Exam: Normal Cardiovascular: Positive: RRR, No Murmur, Pulses Normal Abdominal Exam: Normal Musculoskeletal Exam: Normal Musculoskeletal: Positive: Strength Intact Neurological Exam: Normal Psychological Exam: Normal Skin: Positive: Other - SMALL 0.5 CM X 0.5 CM INDURATED ABSCESS RIGHT AXILLA Course/Dx - Differential Diagnoses - Skin Complaint Differential Diagnoses: Abscess, Cellulitis, MRSA - Diagnoses Provider Diagnoses: RIGHT INDURATED ABSCESS RIGHT AXILLA Discharge - Discharge Plan Condition: Stable Disposition: HOME Prescriptions: Sulfamethox/Trimethoprim DS* [Bactrim DS 800/160 TAB*] 1 tab PO BID #20 tab Patient Education Materials: MRSA (Methicillin-Resistant Staphylococcus Aureus ) (ED), Abscess (ED) Forms: *Work Release Referrals: [facility] PHYSICIAN REFERRAL [Outside] No Primary Care Phys,NOPCP [Primary Care Provider] - Additional Instructions: PRIMARY CARE: There are four major types of clinical preventive care: immunizations, screening , behavioral counseling (sometimes referred to as lifestyle changes), and chemoprevention. All four apply throughout the life span. It is important to establish and to have access to a Primary Care Physician, not only for follow- up regrding acute and chronic problems, but also for preventative care.
== END 2016-10-08 12:42 | disposition home or self-care (01) ==
LOC: UCEAST 10:37
DX: L02.411 Cutaneous abscess of right axilla (principal); Z86.14 Personal history of Methicillin resistant Staphylococcus aureus infection; Z90.49 Acquired absence of other specified parts of digestive tract; Z88.6 Allergy status to analgesic agent; F17.210 Nicotine dependence, cigarettes, uncomplicated
CPT/HCPCS: 99212; G0463

== ENCOUNTER 2017-06-04 19:50 | Emergency (ER) | payer MEDICAID, OTHER ==
[2017-06-04 20:49] VITALS: BP 130/82
--- NOTE | 2017-06-04 21:10 | UC ---
Throat Pain/Nasal Lj HPI - HPI Summary HPI Summary: patient has had sores on her tongue for 2 days and today has a very sore throat - History of Current Complaint Chief Complaint: UCGeneralIllness Stated Complaint: MOUTH SORES Time Seen by Provider: 06/04/17 20:50 Hx Obtained From: Patient Hx Last Menstrual Period: [id number] ?: No Onset/Duration: Gradual Onset Pain Intensity: 9 Associated Signs & Symptoms: Negative: Sinus Discomfort, Nasal Discharge, Fever - Allergies/Home Medications Allergies/Adverse Reactions: Allergies Allergy/AdvReac Type Severity Reaction Status Date / Time acetaminophen [From Tylenol] Allergy See Comment Verified 06/04/17 20:51 amoxicillin Allergy Hives/Diff. Verified 06/04/17 20:51 Breathing/I tching PMH/Surg Hx/FS Hx/Imm Hx Previously Healthy: Yes Respiratory History: Asthma - Surgical History Surgical History: Yes Surgery Procedure, Year, and Place: gallbladder, 2 - Family History Known Family History: Positive: None Negative: Cardiac Disease Family History: no reported cardiovascular issues in family lineage - Social History Occupation: Unemployed Lives: With Family Alcohol Use: Occasionally Alcohol Amount: 2/month Substance Use Type: None Smoking Status (MU): Light Every Day Tobacco Smoker Amount Used/How Often: 1/2 ppd Household Exposure Type: Cigarettes Cessation Counseling: Patient Advised to Stop - Immunization History Most Recent Influenza Vaccination: 2016 Most Recent Tetanus Shot: UTD Most Recent Pneumonia Vaccination: n/a Review of Systems Constitutional: Negative Skin: Negative ENT: Sore Throat, Other - painful sores on tongue Respiratory: Negative Cardiovascular: Negative Musculoskeletal: Negative Neurological: Negative Psychological: Negative Is Patient Immunocompromised?: No All Other Systems Reviewed And Are Negative: Yes Physical Exam Triage Information Reviewed: Yes Appearance: Well-Appearing, No Pain Distress, Obese Vital Signs: Initial Vital Signs Temp 99.8 F 06/04/17 20:44 Pulse 115 06/04/17 20:44 Resp 16 06/04/17 20:44 BP 130/82 06/04/17 20:44 Pulse Ox 99 06/04/17 20:44 Vital Signs Reviewed: Yes Eye Exam: Normal Eyes: Positive: Conjunctiva Clear ENT: Positive: Pharyngeal erythema, TMs normal. Negative: Nasal congestion, Sinus tenderness Dental Exam: Normal Neck: Positive: No Lymphadenopathy Respiratory Exam: Normal Respiratory: Positive: Lungs clear Cardiovascular Exam: Normal Cardiovascular: Positive: RRR Neurological Exam: Normal Psychological Exam: Normal Skin Exam: Normal Skin: Negative: rashes Throat Pain/Nasal Course/Dx - Differential Dx/Diagnosis Differential Diagnosis/HQI/PQRI: Sinusitis, Tonsillitis, URI Provider Diagnoses: apthous ulcers Discharge - Sign-Out/Discharge Documenting (check all that apply): Discharge - Discharge Plan Condition: Good Disposition: HOME Patient Education Materials: Pharyngitis (ED) Referrals: Dasia Payne MD [Primary Care Provider] - 2 Days (for recheck) Additional Instructions: use 1:1 mixture of liquid benadryl and liquid maalox: swish in mouth and spit 3- 4 times a day ibuprofen for sore throat as directed - Billing Disposition and Condition Condition: GOOD Disposition: HOME
== END 2017-06-04 21:24 | disposition home or self-care (01) ==
LOC: UCEAST 19:50
DX: K12.0 Recurrent oral aphthae (principal); J45.909 Unspecified asthma, uncomplicated; Z88.6 Allergy status to analgesic agent; Z88.0 Allergy status to penicillin; F17.210 Nicotine dependence, cigarettes, uncomplicated
CPT/HCPCS: 87651; 99211; G0463

== ENCOUNTER 2017-06-06 04:09 | Emergency (ER) | payer MEDICAID, OTHER ==
[2017-06-06] MEDS ORDERED: NS 0.9% 1000 ML* 1,000 ML IV ONE (04:47)
[2017-06-06] MEDS ORDERED: Acetaminophen TAB* 325 MG PO ONE (04:48)
[2017-06-06] MEDS ORDERED: Ketorolac INJ* 30 MG/ML 1 ML VIAL IV PUSH ONE (04:48)
[2017-06-06] MEDS ORDERED: Lidocaine 2% VISCOUS* 15 ML UDC SWISH SPIT ONE (04:48)
[2017-06-06] MEDS ORDERED: Ibuprofen TAB* 800 MG PO ONE (05:03)
[2017-06-06 05:20] LABS: ABS Basophils 0.1 10^3/ul (0-0.2); ABS Eosinophils 0.1 10^3/ul (0-0.6); ABS Lymphocytes 1.7 10^3/ul (1.0-4.8); ABS Monocytes 1.1 10^3/ul (0-0.8); ABS Neutrophils 6.7 10^3/ul (1.5-7.7); ABS Nucleated RBC 0 10^3/ul; Eosinophil % 0.6 % (0-6); Hematocrit 41 % (35-47); Hemoglobin 14.1 g/dl (12.0-16.0); Lymphocyte % 17.4 % (25-47); Mean Corpuscular HGB Conc 34 g/dl (31-36); Mean Corpuscular Hemoglobin 30 pg (27-31); Mean Corpuscular Volume 88 fL (80-97); Nucleated Red Blood Cells % 0; Platelet Count 164 10^3/ul (150-450); Red Blood Count 4.69 10^6/ul (4.0-5.4); Red Cell Distribution Width 13 % (10.5-15); White Blood Count 9.6 10^3/ul (3.5-10.8)
[2017-06-06 05:39] LABS: EGFR Non-African American 101.3 (>60)
--- NOTE | 2017-06-06 06:08 | ED ---
Mariel Martínez Gabriel, scribed for Elfar, Abdul, MD on 06/06/17 at 0441 . Influenza-Like Illness - HPI Summary HPI Summary: This patient is a 26 year old F BIBA to [facility] with a chief complaint of flu like symptoms since 06-01-17. The patient rates the pain 10/10 in severity. Patient reports fever, chills, sore throat, ear pain, mouth ulcers, and neck pain. Patient denies rash. Pt was seen at . - History of Current Complaint Hx Obtained From: Patient Onset/Duration: Lasting Days - 5, Still Present Severity: Moderate Associated Signs & Symptoms: Fever, Sore Throat - Allergy/Home Medications Allergies/Adverse Reactions: Allergies Allergy/AdvReac Type Severity Reaction Status Date / Time acetaminophen [From Tylenol] Allergy See Comment Verified 06/04/17 20:51 amoxicillin Allergy Hives/Diff. 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 , Other GI Disorders - abd pain x 2 mo Denies: Hx Ulcer - Surgical History Surgery Procedure, Year, and Place: gallbladder, 2 Infectious Disease History: No Infectious Disease History: Denies: Hx Clostridium Difficile, Hx Hepatitis, Hx Human Immunodeficiency Virus (HIV), Hx Shingles, Hx Tuberculosis, Hx Known/Suspected VRE, Hx Known/ Suspected VRSA, History Other Infectious Disease, Traveled Outside the [place] in Last 30 Days - Family History Known Family History: Negative: Cardiac Disease Family History: no reported cardiovascular issues in family lineage - Social History Alcohol Use: Occasionally Alcohol Amount: 2/month Substance Use Type: Reports: None Smoking Status (MU): Light Every Day Tobacco Smoker Amount Used/How Often: 1/2 ppd Review of Systems Positive: Fever, Chills ENT: Other - mouth sores Positive: Sore Throat, Other - ear pain Positive: Other - neck pain Negative: Rash All Other Systems Reviewed And Are Negative: Yes Physical Exam - Summary Physical Exam Summary: VITAL SIGNS: Reviewed. GENERAL: Patient is a well-developed and nourished female who is lying comfortable in the stretcher. Patient is not in any acute respiratory distress. HEAD AND FACE: No signs of trauma. No ecchymosis, hematomas or skull depressions. No sinus tenderness. EYES: PERRLA, EOMI x 2, No injected conjunctiva, no nystagmus. EARS: Hearing grossly intact. Ear canals and tympanic membranes are within normal limits. Vesicular rash on tongue. MOUTH: Oropharynx within normal limits. NECK: Supple, trachea is midline, no adenopathy, no JVD, no carotid bruit, no c- spine tenderness, neck with full ROM. CHEST: Symmetric, no tenderness at palpation LUNGS: Clear to auscultation bilaterally. No wheezing or crackles. CVS: Regular rate and rhythm, S1 and S2 present, no murmurs or gallops appreciated. ABDOMEN: Soft, non-tender. No signs of distention. No rebound no guarding, and no masses palpated. Bowel sounds are normal. EXTREMITIES: FROM in all major joints, no edema, no cyanosis or clubbing. NEURO rash on the palms of her hands Triage Information Reviewed: Yes Vital Signs On Initial Exam: Initial Vitals Temp Pulse Resp BP Pulse Ox 100.1 F 98 17 127/67 97 06/06/17 04:16 06/06/17 04:16 06/06/17 04:16 06/06/17 04:16 06/06/17 04:16 Vital Signs Reviewed: Yes Diagnostics - Vital Signs Vital Signs Temp Pulse Resp BP Pulse Ox 06/06/17 04:16 100.1 F 98 17 127/67 97 - Laboratory Result Diagrams: 06/06/17 04:57 06/06/17 04:57 Lab Statement: Any lab studies that have been ordered have been reviewed, and results considered in the medical decision making process. Flu Symptom Course/Dx - Course Assessment/Plan: This patient is a 26 year old F BIBA to [facility] with a chief complaint of flu like symptoms since 06-01-17. The patient rates the pain 10/10 in severity. Patient reports fever, chills, sore throat, ear pain, mouth ulcers , and neck pain. Patient denies rash. Pt was seen at . Test results with no significant abnormalities except for a CRP of 67. In the ED course the patient was given tylenol, toradol, motrin, lidocaine, and IV fluids. Dx coxsackie virus. Patient will be discharged with prescription for motrin and lidocaine and follow up from PCP. The patient is agreeable with this plan. - Diagnoses Provider Diagnoses: Coxsackie virus infection Discharge - Sign-Out/Discharge Documenting (check all that apply): Discharge - Discharge Plan Condition: Stable Disposition: HOME Prescriptions: Ibuprofen TAB* [Motrin TAB* 800 MG] 800 mg PO Q6H PRN #30 tab PRN Reason: Fever/Pain Lidocaine 2% VISCOUS* 10 ml PO TID PRN #1 btl PRN Reason: Pain Referrals: Dasia Payne MD [Primary Care Provider] - The documentation as recorded by the Mariel christina Gabriel accurately reflects the service I personally performed and the decisions made by , Giselle Murillo MD.
[2017-06-06 06:31] VITALS: BP 100/57
== END 2017-06-06 06:34 | disposition home or self-care (01) ==
LOC: ED 04:09
DX: B33.8 Other specified viral diseases (principal); R50.9 Fever, unspecified; J02.9 Acute pharyngitis, unspecified; H92.09 Otalgia, unspecified ear; F17.210 Nicotine dependence, cigarettes, uncomplicated
CPT/HCPCS: 36415; 80053; 85025; 86140; 86308; 87502; 87651; 96361; 96374; 99283; A9270-GY; J1885

== ENCOUNTER 2017-08-15 23:16 | Emergency (ER) | payer OTHER ==
[2017-08-15 23:56] LABS: ABS Basophils 0.1 10^3/ul (0-0.2); ABS Eosinophils 0.1 10^3/ul (0-0.6); ABS Lymphocytes 3.3 10^3/ul (1.0-4.8); ABS Monocytes 0.5 10^3/ul (0-0.8); ABS Neutrophils 4.6 10^3/ul (1.5-7.7); ABS Nucleated RBC 0 10^3/ul; Eosinophil % 1.7 % (0-6); Hematocrit 41 % (35-47); Lymphocyte % 38.3 % (25-47); Mean Corpuscular HGB Conc 34 g/dl (31-36); Mean Corpuscular Hemoglobin 30 pg (27-31); Mean Corpuscular Volume 89 fL (80-97); Mean Platelet Volume 8.4 um3 (7.4-10.4); Nucleated Red Blood Cells % 0.1; Platelet Count 238 10^3/ul (150-450); Red Blood Count 4.61 10^6/ul (4.00-5.40); Red Cell Distribution Width 13 % (10.5-15); White Blood Count 8.7 10^3/ul (3.5-10.8)
[2017-08-15] MEDS ORDERED: Metoclopramide IV* 5 MG/ML 2 ML VIAL IV ONE (23:58)
[2017-08-15] MEDS ORDERED: diPHENhydraMINE IV* 50 MG/ML 1 ml VIAL (BENADRYL) IV ONE (23:58)
[2017-08-15] MEDS ORDERED: NS 0.9% 1000 ML* 1,000 ML IV ONE (23:58)
--- NOTE | 2017-08-16 00:13 | ED ---
Headache - HPI Summary HPI Summary: Complains of sharp pain to the left side back of her head worse with movement, bifrontal headache, blurred vision, vomiting 3 starting at 9:30 tonight. Some blood in the third emesis. Also complains of productive cough 2 weeks. History of migraines. Patient states symptoms are same except for pain at the back of the head. Denies fever, sore throat, SOB, CP, abdominal pain, diarrhea , change in urine, change in BM, vaginal symptoms. Took ibuprofen 1g at 9:45 pm. Medical history is none alcoholic cirrhosis. Positive smoker, occasional drinker, and denies recreational drugs - History Of Current Complaint Chief Complaint: EDHeadache Stated Complaint: HEADACHE/BLURRY VISION Time Seen by Provider: 08/15/17 23:28 Hx Obtained From: Patient Hx Last Menstrual Period: [id number] Onset/Duration: Sudden Onset, Started hours ago Currently Pain Is: Severe Timing: Constant Character: Sharp, Typical Headache, Migraine Location of Headache: Frontal, Occipital Aggravating Factor: Other Allevating Factors: Nothing Associated Signs And Symptoms: Vomiting, Neck Pain, Visual Changes - Risk Factors SAH Risk Factors: Smoking Meningitis Risk Factors: Negative SDH Risk Factors: Negative Temporal Arteritis Risk Factors: Female - Allergies/Home Medications Allergies/Adverse Reactions: Allergies Allergy/AdvReac Type Severity Reaction Status Date / Time acetaminophen [From Tylenol] Allergy See Comment Verified 06/04/17 20:51 amoxicillin Allergy Hives/Diff. 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 , Other GI Disorders - abd pain x 2 mo Denies: Hx Ulcer History: Denies: Hx Dialysis EENT History: Denies: Hx Deafness Neurological History: Denies: Hx CVA - Surgical History Surgery Procedure, Year, and Place: gallbladder, 2 Infectious Disease History: Yes Infectious Disease History: Denies: Hx Clostridium Difficile, Hx Hepatitis, Hx Human Immunodeficiency Virus (HIV), Hx Shingles, Hx Tuberculosis, Hx Known/Suspected VRE, Hx Known/ Suspected VRSA, History Other Infectious Disease, Traveled Outside the [place] in Last 30 Days - Family History Known Family History: Positive: None Negative: Cardiac Disease Family History: no reported cardiovascular issues in family lineage - Social History Alcohol Use: Occasionally Alcohol Amount: 2/month Substance Use Type: Reports: None Smoking Status (MU): Light Every Day Tobacco Smoker Amount Used/How Often: 1/2 ppd Review of Systems Constitutional: Negative Positive: Blurred Vision ENT: Negative Cardiovascular: Negative Positive: Cough Positive: Vomiting, Nausea Genitourinary: Negative Musculoskeletal: Negative Skin: Negative Positive: Headache Psychological: Normal All Other Systems Reviewed And Are Negative: Yes Physical Exam - Summary Physical Exam Summary: Paraspinal muscles left of C-spine tender to palpation, left trapezius tender to palpation. Pain at back of head is left side only, worse with rotation of neck. Neuro exam normal. Negative Kernig's. Negative Brudzinski. Full range of motion of neck. Triage Information Reviewed: Yes Vital Signs On Initial Exam: Initial Vitals Temp Pulse Resp BP Pulse Ox 96.8 F 96 20 123/81 98 08/15/17 23:18 08/15/17 23:18 08/15/17 23:18 08/15/17 23:18 08/15/17 23:18 Vital Signs Reviewed: Yes Appearance: Positive: Well-Appearing Skin: Positive: Warm Head/Face: Positive: Normal Head/Face Inspection Eyes: Positive: Normal Neck: Positive: Supple Respiratory/Lung Sounds: Positive: Clear to Auscultation Cardiovascular: Positive: Normal Abdomen Description: Positive: Nontender Musculoskeletal: Positive: Normal Neurological: Positive: Normal Psychiatric: Positive: Normal AVPU Assessment: Alert - [place] Coma Scale Best Eye Response: 4 - Spontaneous Best Motor Response: 6 - Obeys Commands Best Verbal Response: 5 - Oriented Coma Scale Total: 15 Diagnostics - Vital Signs Vital Signs Temp Pulse Resp BP Pulse Ox 08/15/17 23:18 96.8 F 96 20 123/81 98 - Laboratory Lab Results: Lab Results 08/15/17 Range/Units 23:49 WBC 8.7 (3.5-10.8) 10^3/ul RBC 4.61 (4.00-5.40) 10^6/ul Hgb 14.0 (12.0-16.0) g/dl Hct 41 (35-47) % MCV 89 (80-97) fL MCH 30 (27-31) pg MCHC 34 (31-36) g/dl RDW 13 (10.5-15) % Plt Count 238 (150-450) 10^3/ul MPV 8.4 (7.4-10.4) um3 Neut % (Auto) 53.3 (38-83) % Lymph % (Auto) 38.3 (25-47) % [place] % (Auto) 5.8 (0-7) % Eos % (Auto) 1.7 (0-6) % Baso % (Auto) 0.9 (0-2) % Absolute Neuts (auto) 4.6 (1.5-7.7) 10^3/ul Absolute Lymphs (auto) 3.3 (1.0-4.8) 10^3/ul Absolute Monos (auto) 0.5 (0-0.8) 10^3/ul Absolute Eos (auto) 0.1 (0-0.6) 10^3/ul Absolute Basos (auto) 0.1 (0-0.2) 10^3/ul Absolute Nucleated RBC 0 10^3/ul Nucleated RBC % 0.1 Result Diagrams: 08/15/17 23:49 08/15/17 23:49 Lab Statement: Any lab studies that have been ordered have been reviewed, and results considered in the medical decision making process. - Radiology cxr Xray Interpretation: No Acute Changes Radiology Interpretation Completed By: ED Physician Headache Course/Dx - Course Course Of Treatment: Complains of sharp pain to the left side back of her head worse with movement, bifrontal headache, blurred vision, vomiting 3 starting at 9:30 tonight. Some blood in the third emesis. Also complains of productive cough 2 weeks. History of migraines. Patient states symptoms are same except for pain at the back of the head. Denies fever, sore throat, SOB, CP, abdominal pain, diarrhea, change in urine, change in BM, vaginal symptoms. Took ibuprofen 1g at 9:45 pm. Medical history is none alcoholic cirrhosis. Positive smoker, occasional drinker, and denies recreational drugs. Headache pain improved with Benadryl and Reglan. Migraine symptoms same as prior migraine symptoms Labs and imaging unremarkable. Rx for Valium for muscle spasm of left neck. - Diagnoses Provider Diagnoses: Migraine, Neck muscle spasm Discharge - Sign-Out/Discharge Documenting (check all that apply): Discharge/Admit/Transfer - Discharge Plan Condition: Stable Disposition: HOME Prescriptions: Diazepam TAB(*) [Valium TAB(*)] 5 mg PO TID PRN #5 tab MDD 3 tabs PRN Reason: Pain Patient Education Materials: Migraine Headache (ED), Muscle Spasm (ED) Referrals: Dasia Payne MD [Primary Care Provider] - Additional Instructions: Follow-up with primary care. Return to the ED for any new or worsening symptoms - Billing Disposition and Condition Condition: STABLE Disposition: Home
[2017-08-16 02:15] VITALS: BP 100/78
--- NOTE | 2017-08-16 07:46 | RAD ---
Indication: Productive cough. 2 views of the chest including dual energy PA views demonstrate no mediastinal shift. Heart is of normal size and configuration. Lung medeiros appear clear. IMPRESSION: No active cardiopulmonary disease is noted.
== END 2017-08-16 02:13 | disposition home or self-care (01) ==
LOC: ED 23:16
DX: G43.909 Migraine, unspecified, not intractable, without status migrainosus (principal); M62.838 Other muscle spasm; R11.10 Vomiting, unspecified; M54.2 Cervicalgia; H53.8 Other visual disturbances; F17.210 Nicotine dependence, cigarettes, uncomplicated; R05 Cough
CPT/HCPCS: 36415; 71046; 80053; 83605; 85025; 86140; 96374; 96375; 99283; J1200; J2765

== ENCOUNTER → 2017-09-07 12:35 | Emergency (ER) | payer OTHER ==
[2017-09-07 15:02] VITALS: BP 117/79
== END | disposition left against medical advice (07) ==
LOC: ED 12:35
DX: R10.9 Unspecified abdominal pain (principal); R11.0 Nausea; Z53.21 Procedure and treatment not carried out due to patient leaving prior to being seen by health care provider

== ENCOUNTER 2017-09-23 16:42 | Emergency (ER) | payer OTHER ==
[2017-09-23 17:59] LABS: ABS Basophils 0.1 10^3/ul (0-0.2); ABS Eosinophils 0.2 10^3/ul (0-0.6); ABS Lymphocytes 3.2 10^3/ul (1.0-4.8); ABS Monocytes 0.7 10^3/ul (0-0.8); ABS Neutrophils 6.2 10^3/ul (1.5-7.7); ABS Nucleated RBC 0 10^3/ul; Eosinophil % 1.7 % (0-6); Hematocrit 42 % (35-47); Hemoglobin 14.1 g/dl (12.0-16.0); Lymphocyte % 31.3 % (25-47); Mean Corpuscular HGB Conc 34 g/dl (31-36); Mean Corpuscular Hemoglobin 30 pg (27-31); Mean Corpuscular Volume 89 fL (80-97); Mean Platelet Volume 8.8 um3 (7.4-10.4); Nucleated Red Blood Cells % 0; Platelet Count 246 10^3/ul (150-450); Red Blood Count 4.68 10^6/ul (4.00-5.40); Red Cell Distribution Width 13 % (10.5-15); White Blood Count 10.4 10^3/ul (3.5-10.8)
--- NOTE | 2017-09-23 19:12 | ED ---
Abdominal Pain/Female - HPI Summary HPI Summary: Complains of diffuse abdominal pain with short sharp spikes in left lower quadrant, increased urinary frequency, DESOUZA, nausea 2 weeks. Abdominal pain described as intermittent, cramping, diffuse, lasting 30-45 minutes at a time, initially worse with eating, now constant. States pain and nausea are worse today. History of headache, states they have been happening more frequently over the past 2 weeks. Also complains of 3 positive home tests out of 9. Also states 2 negative tests at PCP. Denies fever, neck stiffness, cough, sore throat, CP, SOB, V/D, change in BM. Medical history is none. Patient concerned for ectopic . LMP August 10. Sexually active without control, actively trying for a third child. , history of one miscarriage. Abdominal/pelvic surgical history is cholecystectomy, C- section 2. - History of Current Complaint Chief Complaint: EDAbdPain Stated Complaint: ABD PAIN Time Seen by Provider: 09/23/17 17:35 Hx Obtained From: Patient Hx Last Menstrual Period: [id number] Onset/Duration: Gradual Onset Timing: Intermittent Episode Lasting Severity Initially: Mild Severity Currently: Severe Pain Intensity: 10 Pain Scale Used: 0-10 Numeric Location: Diffuse Radiates: No Character: Sharp, Cramping Aggravating Factor(s): Food Alleviating Factor(s): Nothing Associated Signs and Symptoms: Positive: Urinary Symptoms, Nausea Allergies/Adverse Reactions: Allergies Allergy/AdvReac Type Severity Reaction Status Date / Time acetaminophen [From Tylenol] Allergy See Comment Verified 09/23/17 17:13 amoxicillin Allergy Hives/Diff. Verified 09/23/17 17:13 Breathing/I tching Penicillins Allergy Airway Verified 09/23/17 17:56 Obstruction PMH/Surg Hx/FS Hx/Imm Hx Endocrine/Hematology History: Denies: Hx Anticoagulant Therapy, Hx Diabetes, Hx Thyroid Disease Cardiovascular History: Denies: Hx Congestive Heart Failure, Hx Hypertension Respiratory History: Reports: Hx Asthma Denies: Hx Chronic Obstructive Pulmonary Disease (COPD) GI History: 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 , Other GI Disorders - abd pain x 2 mo Denies: Hx Ulcer History: Denies: Hx Dialysis Sensory History: Denies: Hx Deafness Neurological History: Denies: Hx CVA - Surgical History Surgery Procedure, Year, and Place: gallbladder, 2 - Immunization History Immunizations Up to Date: Yes Infectious Disease History: Yes Infectious Disease History: Denies: Hx Clostridium Difficile, Hx Hepatitis, Hx Human Immunodeficiency Virus (HIV), Hx Shingles, Hx Tuberculosis, Hx Known/Suspected VRE, Hx Known/ Suspected VRSA, History Other Infectious Disease, Traveled Outside the [place] in Last 30 Days - Family History Known Family History: Positive: None Negative: Cardiac Disease Family History: no reported cardiovascular issues in family lineage - Social History Alcohol Use: Occasionally Alcohol Amount: 2/month Substance Use Type: Reports: None Smoking Status (MU): Light Every Day Tobacco Smoker Amount Used/How Often: 1/2 ppd Review of Systems Constitutional: Negative Eyes: Negative ENT: Negative Cardiovascular: Negative Respiratory: Negative Positive: Abdominal Pain, Nausea Positive: frequency Musculoskeletal: Negative Skin: Negative Positive: Headache Psychological: Normal All Other Systems Reviewed And Are Negative: Yes Physical Exam - Summary Physical Exam Summary: Abdomen most tender to palpation left upper quadrant. Triage Information Reviewed: Yes Vital Signs On Initial Exam: Initial Vitals Temp Pulse Resp BP Pulse Ox 98 F 99 20 133/82 96 09/23/17 17:07 09/23/17 17:07 09/23/17 17:07 09/23/17 17:07 09/23/17 17:07 Vital Signs Reviewed: Yes Appearance: Positive: Well-Appearing Skin: Positive: Warm Head/Face: Positive: Normal Head/Face Inspection Eyes: Positive: Normal Neck: Positive: Supple Respiratory/Lung Sounds: Positive: Clear to Auscultation Cardiovascular: Positive: Normal Abdomen Description: Positive: Other: Musculoskeletal: Positive: Normal Neurological: Positive: Normal Psychiatric: Positive: Normal AVPU Assessment: Alert - [place] Coma Scale Best Eye Response: 4 - Spontaneous Best Motor Response: 6 - Obeys Commands Best Verbal Response: 5 - Oriented Coma Scale Total: 15 Diagnostics - Vital Signs Vital Signs Temp Pulse Resp BP Pulse Ox 09/23/17 18:00 95 97 09/23/17 17:38 103 112/80 98 09/23/17 17:07 98 F 99 20 133/82 96 - Laboratory Lab Results: Lab Results 09/23/17 09/23/17 09/23/17 Range/Units 17:53 17:53 17:53 WBC 10.4 (3.5-10.8) 10^3/ul RBC 4.68 (4.00-5.40) 10^6/ul Hgb 14.1 (12.0-16.0) g/dl Hct 42 (35-47) % MCV 89 (80-97) fL MCH 30 (27-31) pg MCHC 34 (31-36) g/dl RDW 13 (10.5-15) % Plt Count 246 (150-450) 10^3/ul MPV 8.8 (7.4-10.4) um3 Neut % (Auto) 59.6 (38-83) % Lymph % (Auto) 31.3 (25-47) % [place] % (Auto) 6.6 (0-7) % Eos % (Auto) 1.7 (0-6) % Baso % (Auto) 0.8 (0-2) % Absolute Neuts (auto) 6.2 (1.5-7.7) 10^3/ul Absolute Lymphs (auto) 3.2 (1.0-4.8) 10^3/ul Absolute Monos (auto) 0.7 (0-0.8) 10^3/ul Absolute Eos (auto) 0.2 (0-0.6) 10^3/ul Absolute Basos (auto) 0.1 (0-0.2) 10^3/ul Absolute Nucleated RBC 0 10^3/ul Nucleated RBC % 0 Sodium 140 (135-145) mmol/L Potassium TNP Chloride 105 (101-111) mmol/L Carbon Dioxide 29 (22-32) mmol/L Anion Gap 6 (2-11) mmol/L BUN 14 (6-24) mg/dL Creatinine 0.87 (0.51-0.95) mg/dL Est GFR ( Amer) 93.1 (>60) Est GFR (Non-Af Amer) 77.0 (>60) BUN/Creatinine Ratio 16.1 (8-20) Glucose 90 (70-100) mg/dL Lactic Acid 1.2 (0.5-2.0) mmol/L Calcium 9.2 (8.6-10.3) mg/dL Total Bilirubin 0.30 (0.2-1.0) mg/dL AST TNP ALT 38 (7-52) U/L Alkaline Phosphatase 102 (34-104) U/L C-Reactive Protein 4.28 (<8.01) mg/L Total Protein 7.1 (6.4-8.9) g/dL Albumin 4.1 (3.2-5.2) g/dL Globulin 3.0 (2-4) g/dL Albumin/Globulin Ratio 1.4 (1-3) Lipase 25 (11.0-82.0) U/L Beta HCG, Quant 0.64 mIU/mL Result Diagrams: 09/23/17 17:53 09/23/17 17:53 Lab Statement: Any lab studies that have been ordered have been reviewed, and results considered in the medical decision making process. - CT ab/pel CT Interpretation: No Acute Changes CT Interpretation Completed By: Radiologist Abdominal Pain Fem Course/Dx - Course Course Of Treatment: Complains of diffuse abdominal pain with short sharp spikes in left lower quadrant, increased urinary frequency, DESOUZA, nausea 2 weeks. Abdominal pain described as intermittent, cramping, diffuse, lasting 30- 45 minutes at a time, initially worse with eating, now constant. States pain and nausea are worse today. History of headache, states they have been happening more frequently over the past 2 weeks. Also complains of 3 positive home tests out of 9. Also states 2 negative tests at PCP. Denies fever, neck stiffness, cough, sore throat, CP, SOB, V/D, change in BM. Medical history is none. Patient concerned for ectopic . LMP August 10. Sexually active without control, actively trying for a third child. , history of one miscarriage. Abdominal/pelvic surgical history is cholecystectomy, 2. Abdomen most tender to palpation left upper quadrant. Vital signs within normal limits and stable. Labs and imaging unremarkable. Follow-up with primary care. - Diagnoses Provider Diagnoses: Left sided abdominal pain of unknown cause Discharge - Sign-Out/Discharge Documenting (check all that apply): Patient Departure - Discharge Plan Condition: Stable Disposition: HOME Prescriptions: Promethazine TAB* [Phenergan TAB*] 25 mg PO Q8H PRN 5 Days #15 tab PRN Reason: Nausea Patient Education Materials: Abdominal Pain (ED) Referrals: Dasia Payne MD [Primary Care Provider] - Heladio Fonseca MD [Medical Doctor] - Additional Instructions: Follow-up with primary care and GI specialist Dr. Fonseca. Return to the ED for any new or worsening symptoms - Billing Disposition and Condition Condition: STABLE Disposition: Home
[2017-09-23 19:56] LABS: Urine Appearance Clear; Urine Blood 1+ (Negative); Urine Color Yellow; Urine Ketones Negative (Negative); Urine Protein Negative (Negative); Urine Red Blood Cell Absent (Absent); Urine Specific Gravity 1.025 (1.010-1.030); Urine Urobilinogen Negative (Negative); Urine White Blood Cell Trace(0-5/hpf) (Absent)
[2017-09-23] MEDS ORDERED: traMADol TAB* 50 MG PO ONE (20:03)
[2017-09-23] MEDS ORDERED: Iohexol 300* (CONTRAST) 10 ML SDV IV ONE (20:41)
[2017-09-23 23:13] VITALS: BP 117/80
--- NOTE | 2017-09-24 08:33 | RAD ---
Indication: Abdominal pain, left lower quadrant pain. Contrast: Administered 150.2 ml of OMNIPAQUE 300 mg/ml CT of the abdomen and pelvis was performed after oral and IV contrast administration. Comparison is made with previous exam dated September 14, 2013. Coronal and sagittal reconstructed images were obtained. The lung bases demonstrate no pleural fluid, nodules or masses. Heart is of normal size without evidence of pericardial effusion. The liver is normal in size. No focal lesions or intrahepatic duct dilatation noted. The gallbladder is status post cholecystectomy. The pancreas demonstrates no mass or pancreatic duct dilatation. The spleen is normal in size. No adrenal lesions are noted. The kidneys demonstrate no hydronephrosis. No retroperitoneal lymphadenopathy no dilated loops of bowel are noted. The stomach is well-distended without evidence of focal wall thickening. Aorta and inferior vena cava are unremarkable. Retroperitoneal structures are unremarkable. CT of the pelvis demonstrates normal appendix. The urinary bladder is grossly unremarkable although it is partially collapsed. The uterus and ovaries are grossly unremarkable No free air is identified. No evidence of free intraperitoneal fluid is noted. The bony structures are grossly unremarkable. IMPRESSION: Patient is status post cholecystectomy. No abnormal masses or fluid collections are identified.
== END 2017-09-23 23:22 | disposition home or self-care (01) ==
LOC: ED 16:42
DX: R10.32 Left lower quadrant pain (principal); R35.0 Frequency of micturition; R51 Headache; R11.0 Nausea; F17.200 Nicotine dependence, unspecified, uncomplicated; Z87.59 Personal history of other complications of pregnancy, childbirth and the puerperium; Z90.49 Acquired absence of other specified parts of digestive tract; Z88.0 Allergy status to penicillin; Z88.3 Allergy status to other anti-infective agents; Z88.6 Allergy status to analgesic agent
CPT/HCPCS: 36415; 74177; 80053; 81003; 81015; 83605; 83690; 84702; 85025; 86140; 87086; 99283; A9270-GY; Q9967

== ENCOUNTER → 2018-04-25 21:13 | Emergency (ER) | payer OTHER ==
[~2018-04-25 21:13] MED LIST: Ketorolac INJ* 30 MG/ML 1 ML VIAL IM ONE; Lidocaine 2% VISCOUS* 15 ML UDC PO ONE
--- NOTE | 2018-04-25 21:45 | ED ---
Throat Pain/Nasal Congestion - HPI Summary HPI Summary: 27-year-old female presents with sore throat for the past 2 weeks. She states that it hurts mostly when she swallows. She denies any fevers. Denies any nausea or vomiting. No vomiting. She admits to productive cough. Denies any sinus congestion. She also has severe pain. She states she was treated to a double ear infection with azithromycin over 2 weeks ago. She admits to headache. She states that her pain at 10 out of 10. - History of Current Complaint Chief Complaint: EDThroatPain Time Seen by Provider: 04/25/18 21:34 - Allergies/Home Medications Allergies/Adverse Reactions: Allergies Allergy/AdvReac Type Severity Reaction Status Date / Time acetaminophen [From Tylenol] Allergy See Comment Verified 04/25/18 21:15 amoxicillin Allergy Hives/Diff. Verified 04/25/18 21:15 Breathing/I tching Penicillins Allergy Airway Verified 04/25/18 21:15 Obstruction PMH/Surg Hx/FS Hx/Imm Hx Endocrine/Hematology History: Denies: Hx Anticoagulant Therapy, Hx Diabetes, Hx Thyroid Disease Cardiovascular History: Denies: Hx Congestive Heart Failure, Hx Hypertension Respiratory History: Reports: Hx Asthma Denies: Hx Chronic Obstructive Pulmonary Disease (COPD) GI History: 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 , Other GI Disorders - abd pain x 2 mo Denies: Hx Ulcer History: Denies: Hx Dialysis Sensory History: Denies: Hx Deafness Neurological History: Denies: Hx CVA - Surgical History Surgery Procedure, Year, and Place: gallbladder, 2 Infectious Disease History: Yes Infectious Disease History: Denies: Hx Clostridium Difficile, Hx Hepatitis, Hx Human Immunodeficiency Virus (HIV), Hx Shingles, Hx Tuberculosis, Hx Known/Suspected VRE, Hx Known/ Suspected VRSA, History Other Infectious Disease, Traveled Outside the [place] in Last 30 Days - Family History Known Family History: Positive: None Negative: Cardiac Disease Family History: no reported cardiovascular issues in family lineage - Social History Alcohol Use: Occasionally Alcohol Amount: 2/month Substance Use Type: Reports: None Smoking Status (MU): Light Every Day Tobacco Smoker Amount Used/How Often: 1/2 ppd Review of Systems Negative: Fever Positive: Sore Throat, Ear Ache Negative: Chest Pain Negative: Shortness Of Breath All Other Systems Reviewed And Are Negative: Yes Physical Exam Triage Information Reviewed: Yes Vital Signs On Initial Exam: Initial Vitals Temp Pulse Resp BP Pulse Ox 98.1 F 93 14 111/74 97 04/25/18 21:15 04/25/18 21:15 04/25/18 21:15 04/25/18 21:15 04/25/18 21:15 Vital Signs Reviewed: Yes Appearance: Positive: Well-Appearing Skin: Positive: Warm, Dry Head/Face: Positive: Normal Head/Face Inspection Eyes: Positive: Normal, EOMI, SANTIAGO, Conjunctiva Clear ENT: Positive: Pharyngeal erythema, TMs normal, Tonsillar swelling, Uvula midline, Other - soft palate symmetric. Negative: Tonsillar exudate, Trismus, Muffled voice Neck: Positive: Supple, Nontender, No Lymphadenopathy Respiratory/Lung Sounds: Positive: Clear to Auscultation, Breath Sounds Present Cardiovascular: Positive: Normal, RRR Abdomen Description: Positive: Nontender, Soft Bowel Sounds: Positive: Present Musculoskeletal: Positive: Normal Neurological: Positive: Normal Psychiatric: Positive: Normal Diagnostics - Vital Signs Vital Signs Temp Pulse Resp BP Pulse Ox 04/25/18 21:15 98.1 F 93 14 111/74 97 - Laboratory Lab Statement: Any lab studies that have been ordered have been reviewed, and results considered in the medical decision making process. EENT Course/Dx - Course Course Of Treatment: 27-year-old female presents with sore throat for the past 2 weeks. She states that it hurts mostly when she swallows. She denies any fevers. Denies any nausea or vomiting. No vomiting. She admits to productive cough. Denies any sinus congestion. She also has severe pain. She states she was treated to a double ear infection with azithromycin over 2 weeks ago. She admits to headache. She states that her pain at 10 out of 10. On exam pharynx erythematous. Uvula midline. Soft palate symmetric. Patient is able to manage secretions well. Strep and mono are negative. We'll treat with steroid. Patient understands and agrees with plan. - Differential Diagnoses Differential Diagnoses: Pharyngitis, Sinusitis, URI/Bronchitis - Diagnoses Provider Diagnoses: Pharyngitis Discharge - Sign-Out/Discharge Documenting (check all that apply): Patient Departure Patient Received Moderate/Deep Sedation with Procedure: No - Discharge Plan Condition: Good Disposition: HOME Prescriptions: Dexamethasone TAB* [Decadron TAB*] 4 mg PO DAILY #5 tab Patient Education Materials: Pharyngitis (ED) Referrals: Dasia Payne MD [Primary Care Provider] - Additional Instructions: Take steroid once a day for 5 days Take Tylenol or ibuprofen for pain every 6 hours Can gargle salt water Can use cough drops or products such as cloraseptic spray follow up with primary Return to ED if develop any new or worsening symptoms - Billing Disposition and Condition Condition: GOOD Disposition: Home
[2018-04-25 22:39] VITALS: BP 117/77
[2018-04-27 16:11] LABS: EBV Capsid Ag IgG Ab Positive (Negative); EBV Capsid Ag IgM Ab Negative (Negative); Epstein-Barr Nuclear Antigen Positive (Negative)
== END | disposition home or self-care (01) ==
LOC: ED 21:13
DX: J02.9 Acute pharyngitis, unspecified (principal); H92.09 Otalgia, unspecified ear; F17.210 Nicotine dependence, cigarettes, uncomplicated; Z88.0 Allergy status to penicillin
CPT/HCPCS: 36415; 86308; 86664; 86665; 87651; 96372; 99282; J1885

== ENCOUNTER 2018-11-28 19:48 | Emergency (ER) | payer OTHER ==
[2018-11-28] MEDS ORDERED: Metoclopramide TAB* 10 MG PO ONE (20:13)
[2018-11-28] MEDS: Ondansetron ODT TAB* 4 MG PO ONE (21:18)
[2018-11-28] MEDS: Acetaminophen TAB* 325 MG PO ONE (22:02)
[2018-11-28] MEDS: diPHENhydraMINE PO* 25 MG PO ONE (22:02)
--- NOTE | 2018-11-28 22:07 | ED ---
Adult Trauma - HPI Summary HPI Summary: patient complains of mechanical fall with head injury and left foot pain at 7: 30pm tonight.. Patient states subsequent symptoms or progressive headache, N/V/ V 2, dizziness with room spinning, blurred vision. Patient states he took Tylenol at 3:30 PM today with some relief. Denies fever, cough, neck pain, oral trauma, sore throat, CP, SOB, N/V/V abdominal pain, change in urine, change in BM. Medical history is GOMES - History of Current Complaint Chief Complaint: EDHeadInjury Stated Complaint: HEAD PAIN PER EMS Time Seen by Provider: 11/28/18 20:00 Hx Obtained From: Patient Hx Last Menstrual Period: [id number] Mechanism of Injury: Fall Loss of Consciousness: no loss of consciousness Onset of Pain: Immediate Onset Severity: Severe Current Severity: Severe Pain Intensity: 10 Pain Scale Used: 0-10 Numeric Location: Head Aggravating Factor(s): Nothing Alleviating Factor(s): Rest Associated Signs & Symptoms: Positive: Nausea/Vomiting - Allergy/Home Medications Allergies/Adverse Reactions: Allergies Allergy/AdvReac Type Severity Reaction Status Date / Time acetaminophen [From Tylenol] Allergy See Comment Verified 04/25/18 21:15 amoxicillin Allergy Hives/Diff. 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 , Other GI Disorders - abd pain x 2 mo Denies: Hx Ulcer History: Denies: Hx Dialysis Sensory History: Denies: Hx Deafness Opthamlomology History: Denies: Hx Legally Blind EENT History: Denies: Hx Hearing Aid Neurological History: Denies: Hx CVA - Surgical History Surgery Procedure, Year, and Place: gallbladder, 2 Infectious Disease History: No Infectious Disease History: Denies: Hx Clostridium Difficile, Hx Hepatitis, Hx Human Immunodeficiency Virus (HIV), Hx Shingles, Hx Tuberculosis, Hx Known/Suspected VRE, Hx Known/ Suspected VRSA, History Other Infectious Disease, Traveled Outside the [place] in Last 30 Days - Family History Known Family History: Positive: None Negative: Cardiac Disease Family History: no reported cardiovascular issues in family lineage - Social History Alcohol Use: Occasionally Alcohol Amount: 2/month Substance Use Type: Reports: None Smoking Status (MU): Light Every Day Tobacco Smoker Amount Used/How Often: 1/2 ppd Review of Systems Constitutional: Negative Positive: Blurred Vision ENT: Negative Cardiovascular: Negative Respiratory: Negative Positive: Vomiting, Nausea Genitourinary: Negative Musculoskeletal: Negative Skin: Negative Positive: Headache Psychological: Normal All Other Systems Reviewed And Are Negative: Yes Physical Exam - Summary Physical Exam Summary: Neuro exam normal. No evidence of oral or facial trauma. Small hematoma to posterior head with no wound. Full range of motion of jaw and neck. No pain with palpation of neck, back, chest wall, abdomen. Patient moving all 4 extremities freely without indication of pain. Triage Information Reviewed: Yes Vital Signs On Initial Exam: Initial Vitals Temp Pulse Resp BP Pulse Ox 97.9 F 80 18 140/80 99 11/28/18 19:51 11/28/18 19:51 11/28/18 19:51 11/28/18 19:51 11/28/18 19:51 Vital Signs Reviewed: Yes Appearance: Positive: Well-Appearing Skin: Positive: Warm Head/Face: Positive: Normal Head/Face Inspection Eyes: Positive: Normal ENT: Positive: Normal ENT inspection Dental: Negative: Dental Fracture @, Bleeding Neck: Positive: Supple Respiratory/Lung Sounds: Positive: Clear to Auscultation Cardiovascular: Positive: Normal Abdomen Description: Positive: Nontender Musculoskeletal: Positive: Normal Neurological: Positive: Normal Psychiatric: Positive: Normal AVPU Assessment: Alert - Adalberto Coma Scale Best Eye Response: 4 - Spontaneous Best Motor Response: 6 - Obeys Commands Best Verbal Response: 5 - Oriented Coma Scale Total: 15 Procedures - Sedation Patient Received Moderate/Deep Sedation with Procedure: No Diagnostics - Vital Signs Vital Signs Temp Pulse Resp BP Pulse Ox 11/28/18 19:51 97.9 F 80 18 140/80 99 - Laboratory Lab Statement: Any lab studies that have been ordered have been reviewed, and results considered in the medical decision making process. Adult Trauma Course/Dx - Course Course Of Treatment: patient complains of mechanical fall with head injury and left foot pain at 7:30pm tonight.. Patient states subsequent symptoms or progressive headache, N/V/V 2, dizziness with room spinning, blurred vision. Patient states he took Tylenol at 3:30 PM today with some relief. Denies fever , cough, neck pain, oral trauma, sore throat, CP, SOB, N/V/V abdominal pain, change in urine, change in BM. Medical history is GOMES. Vital signs within normal limits. X-ray left foot negative. CT brain negative. - Diagnoses Provider Diagnoses: Fall, Head injury, Concussion, Foot pain Discharge ED - Sign-Out/Discharge Documenting (check all that apply): Patient Departure - Discharge Plan Condition: Stable Disposition: HOME Prescriptions: Ondansetron ODT TAB* [Zofran 4 MG Odt TAB*] 4 mg PO Q8H PRN 4 Days #14 tab.odt PRN Reason: Nausea Patient Education Materials: Concussion (ED), Head Injury (ED), Foot Contusion (ED), Metatarsalgia (DC) Referrals: Dasia Payne MD [Primary Care Provider] - Additional Instructions: Take ibuprofen 600 mg every 6 hours for headache. Takes Zofran for nausea. Avoid contact sports or physical activities where there is a risk of repeat head injury until cleared by primary care. Return to the ED for any new worsening symptoms. - Billing Disposition and Condition Condition: STABLE Disposition: Home - Attestation Statements Provider Attestation: I was available for consult. This patient was seen by the CHERY. The patient was not presented to, seen by, or examined by me. Pascual Browne MD
[2018-11-28 22:43] VITALS: BP 107/79
== END 2018-11-28 22:43 | disposition home or self-care (01) ==
LOC: ED 19:48
DX: S06.0X9A Concussion with loss of consciousness of unspecified duration, initial encounter (principal); M79.672 Pain in left foot; W19.XXXA Unspecified fall, initial encounter; Y92.9 Unspecified place or not applicable; F17.200 Nicotine dependence, unspecified, uncomplicated; Z79.899 Other long term (current) drug therapy; Z88.6 Allergy status to analgesic agent; Z88.0 Allergy status to penicillin
CPT/HCPCS: 70450; 99282; A9270-GY